=== PATIENT | female | born 1990 | race Caucasian/White ===

== ENCOUNTER 2022-10-31 01:59 | Day surgery (SDC) | payer OTHER, SELFPAY ==
[2022-10-29 10:37] VITALS: BMI 27.6
--- NOTE | 2022-10-29 10:41 | PC.NURSE ---
Report to the Outpatient Waiting Room, entrance under the green pavilion located off [facility], at time 1100 on date 10/31/22. Planned Procedure Time: 1300. Time changes happen often and if your time is changed the preop area will call you the afternoon before. - You and your visitor will be asked to self-screen and do not enter if you have any COVID symptoms. - Only one visitor is requested with a max of two and NO children visitors are allowed at this time. - The patient visitor may be requested to leave or wait in car when not with patient due to distancing restrictions. - A mask is optional within the hospital. Patients may have clear liquids (water, carbonated beverages, clear teas, apple juice) until 3 hours prior to surgery with a maximum of 20 ounces. - No food from midnight until time of surgery Take the following medications with a SIP of water the morning of surgery: LAMOTRIGINE, LEVETIRACETAM Medications to discontinue per physician: N/A Date to take last dose: N/A Please no make-up, nail portuguese, hairspray, perfume, deodorant, or body powder the day of surgery. No jewelry (including any body piercings) or valuables the day of surgery, leave them at home. Please take a shower or bath the night before, or the morning of, surgery with an antibacterial soap. Wear comfortable, loose fitting clothing. - Jewelry must be removed prior to entering the operating room. Rings and piercings that are not removed may be cut off. - The hospital will not accept responsibility for valuables. - Please leave all valuables, including medications, at home the day of surgery. If you are going home after surgery, a licensed uke driver must drive you home. - NO public transportation without another adult if you receive anesthesia. - We recommend that an adult stay with you for 24 hours following discharge. - We also recommend that you do not drive, make important decision, drink alcoholic beverages, or take any drugs that were not prescribed by your health care provider for at least 24 hours after your discharge time. Follow any additional instructions given to you from your surgeon. If you or anyone in your household have experienced Covid symptoms in the past week, please notify your surgeon or the nurse liaison at the phone number below for possible testing. Telephone instructions given to PT - IOANA TALAMANTES and asked if any additional questions and then verbalized understanding. Patient advised to call surgeon office or pre surgery nurse liaison [phone] if any additional questions.
[2022-10-31] MEDS: ONDANSETRON INJ 4 MG/2 ML VIAL IV PUSH (11:38)
[2022-10-31] MEDS: LACTATED RINGERS 1,000 ML 30 ML IV CONT (11:38)
[2022-10-31] MEDS: SCOPOLAMINE 1.5 MG PATCH TRANSDERM (11:38)
[2022-10-31 11:52] VITALS: BP 110/71; PULSE 82; RESP 18; TEMP 36.6; O2SAT 100
--- NOTE | 2022-10-31 11:54 | WPDANESEPPF ---
Anes - Initial Pre Proc Eval Procedure: Operation Date: 10/31/22 13:00 Proposed Procedures p Suction Dilatation and Curettage - Leana Castano MD Date/Time: 10/31/22 11:54 Surgeon: Leana Castano MD Pre Op Diagnosis: missed AB Patient Data Age: 31 Gender: F Height: 1.7 m Weight: 77.2 kg Last Vital Signs Temp 36.6 C 10/31/22 11:52 Pulse 82 10/31/22 11:52 Resp 18 10/31/22 11:52 BP 110/71 10/31/22 11:52 Pulse Ox 100 10/31/22 11:52 O2 Del Method Room Air 10/31/22 11:52 Allergies Allergy/AdvReac Type Severity Reaction Status Date / Time No Known Allergies Allergy Verified 10/31/22 11:42 Home Medications Medication Instructions Recorded Confirmed Type lamotrigine 25 mg tablet 75 mg PO BID 10/29/22 10/31/22 History levetiracetam 750 mg tablet 1,500 mg PO BID 10/29/22 10/31/22 History Patient hx anesthesia problems: none Family hx anesthesia problems: none Results Review: All pre-operative results and documents have been reviewed as part of the pre-operative evaluation. [facility] Social History Social History Smoking packs per day: 0.5 Smoking cigarettes per day: 10.0 Years smoked: 10 Smoking pack-years: 5.00 Smoking status: Former smoker Tobacco type: cigarettes Smoking end date: 10/13/15 Alcohol intake: never Substance use: current Substance use type: marijuana Living arrangements: other Spiritual care concerns: No Anes - Eval Final PreProcedure Day of Procedure 10/31/22 11:54 Patient weight: overweight Heart: regular rate and rhythm Lungs: decreased breath sounds Airway: Mallampati scale class II Neurological: alert and oriented Last oral intake: >/= 8 hours ASA classification: II Emergent: no Anesthetic plan: proceed Anesthesia type and monitoring: general GIVS and standard monitoring Results Review: All pre-operative results and documents have been reviewed as part of the pre-operative evaluation. Informed Consent: The patient's anesthetic plan and its attendant risks and benefits were discussed with the patient/family/POA. Questions were solicited and answers provided to the satisfaction of the patient/family/POA.
--- NOTE | 2022-10-31 12:37 | WPDHPUPDATE1 ---
History and Physical Update Update Date/Time: 10/31/22 12:37 History and Physical has been reviewed, including an updated exam of the patient. There are NO changes in the patient's condition. Risks, benefits, and alternatives have been discussed and questions answered. Patient agrees to proceed with procedure.
[2022-10-31] MEDS: LIDOCAINE HCL 1% LOCAL INJ 10 ML VIAL 30 ML INFILTRATE (13:00)
[2022-10-31 13:18] VITALS: BP 96/54; PULSE 76; RESP 14; O2SAT 99
--- NOTE | 2022-10-31 13:30 | W.PM.PROC2 ---
Procedure Note - Detailed Date of Procedure 10/31/22 Pre-op Diagnosis missed AB Post-op Diagnosis Same Procedure Performed Suction D&C Surgeon Leana Castano MD Anesthesia MAC Indications missed Findings normal-appearing vulva vagina and cervix to. Moderate amount of products conception within the uterus. 8 cm uterus Description of Procedure the patient was taken the operating room. She was prepped and draped in dorsal lithotomy position after induction of mac anesthesia. A speculum was placed in the vagina. Cervix grasped with tenaculum. The cervix was dilated to about 1 cm Using Camacho dilators. A 8. Latvian curved curette was used to perform suction D&C. The curette was introduced and vacuum was applied. The curette was removed over all surfaces of the intrauterine cavity multiple times. This was done until all the surfaces were clear and had the familiar grainy texture they can be felt through the instrument. A sharp curette was then used to curettage all the surfaces. The suction cup was then reapplied 1 more time to remove any debris. The instruments were removed. The speculum and tenaculum were removed. The patient tolerated the procedure well. She was taken recovery room stable condition. Estimated Blood Loss 50 Drains No Packing No Pathology Yes Complications No immediate complications Condition Stable Disposition PACU
[2022-10-31 13:40] VITALS: BP 98/61; PULSE 57; RESP 14; O2SAT 99
[2022-10-31 14:10] VITALS: BP 103/64; PULSE 56; RESP 16; O2SAT 99
== END 2022-10-31 14:21 | disposition home or self-care (01) ==
PROVIDERS: PCP Nurse Practitioner; Visit Provider Obstetrics & Gynecology
PROC: (CPT 59820; principal; 2022-10-31 13:00)
DX: O02.1 Missed abortion (principal); Z87.891 Personal history of nicotine dependence; Z3A.00 Weeks of gestation of pregnancy not specified
CPT/HCPCS: 59820; 36415; 85461; 86850; 86900; 86901; 88305; A9270; J2250; J2405; J2704; J3010; J7120

== ENCOUNTER 2023-09-24 10:22 | Outpatient (CLI) | payer OTHER, SELFPAY ==
[2023-09-24] VITALS (37 sets, daily range): BP systolic 90–105; BP diastolic 48–70; PULSE 38–97; O2SAT 78–98; BMI 28.3
[2023-09-24 11:02] LABS: Basophils Percent Auto 0.2 % (0.2-1.2); Eosinophils Absolute Auto 0.1 K/mm3 (0-0.3); Eosinophils Percent Auto 0.6 % (0-4.4); Hematocrit 30.6 % (37.0-47.0); Hemoglobin 9.9 g/dL (12.0-15.0); Immature Granulocyte Absolute 0.08 K/mm3 (0.00-0.031); Immature Granulocyte Percent A 0.6 % (0-0.5); Lymphocytes Absolute Auto 0.97 K/mm3 (0.9-3.2); Lymphocytes Percent Auto 7.6 % (18.3-44.2); Mean Corpuscular HGB Conc 32.4 g/dl (32-36); Mean Corpuscular Hemoglobin 25.3 pg (26-34); Mean Corpuscular Volume 78.1 fl (80-100); Mean Platelet Volume 10.5 fl (7.4-10.4); Monocytes Absolute Auto 0.6 K/mm3 (0.1-0.6); Monocytes Percent Auto 4.7 % (2.6-8.5); Neutrophils Percent Auto 86.3 % (45.5-73.1); Platelet Count Result 152 k/mm3 (150-375); Red Blood Count 3.92 M/mm3 (4.2-5.4); Red Cell Distribution Width 13.7 % (11.5-14.5); White Blood Count 12.7 K/mm3 (4.5-10.0)
[2023-09-24] MEDS: ACETAMINOPHEN 500 MG TABLET 1000 MG PO (11:11)
[2023-09-24 11:14] LABS: Alanine Aminotransferase 10 U/L (6-35); Albumin Level 3.5 g/dL (3.5-5.1); Alkaline Phosphatase 161 U/L (38-126); Anion Gap 7 mmol/L (8-16); Aspartate Amino Transferase 17 U/L (14-36); Bilirubin,Total 0.8 mg/dL (0.2-1.3); Blood Urea Nitrogen 8 mg/dL (7-17); Calcium 8.3 mg/dL (8.4-10.2); Carbon Dioxide 19 mmol/L (22-30); Chloride 107 mmol/L (98-107); Estimated CRCL calculation 150 ml/min; Estimated Glomerular Filt Rate > 60; Glucose 93 mg/dL (65-110); Potassium 3.5 mmol/L (3.4-5.0); Sodium 133 mmol/L (137-145); Uric Acid 3.8 mg/dL (2.5-7.5)
[2023-09-24 11:40] LABS: Creatinine Urine 141.9 mg/dL; Total Protein Urine Random 15 mg/dL; Ur Ttl Prot Creatinine Ratio 0.11 mg/mg (0-0.20)
[2023-09-24 11:41] LABS: Appearance Urine Clear (Clear); Bacteria Urine 1+ /hpf; Bilirubin Urine Negative (Negative); Blood Urine Negative (Negative); Calcium Oxalate Crystals Urine Present /hpf; Color Urine Yellow (Yellow); Glucose Urine UA Negative (Negative); Ketones Urine 3+ mg/dL (Negative); Leukocyte Esterase Ur 1+ LEU/UL (NEGATIVE); Need Manual Microscopic Reviewed; Nitrate Urine Negative (Negative); Non Pathogenic Casts 0-2; Protein Urine Trace mg/dL (Negative); RBC Urine 0-2 /hpf (0-2); Specific Grav Ur 1.021 (1.001-1.035); Squamous Epithelial Cell Urine Few /hpf (Few); WBC Urine 0-5 /hpf (0-3)
[2023-09-24 11:46] LABS: Add Urine Microscopic? YES
[2023-09-24] MEDS: CYCLOBENZAPRINE HCL 5 MG TABLET PO (12:59)
--- NOTE | 2023-09-24 14:00 | PC.NURSE ---
Shelbi MCCRACKENM on unit. Discussed plan of care with CNM. Patient states her back pain has diminished after receiving Flexeril. CNM to talk with MFM for orders. Patient to remain on observation unit until further orders are received.
--- NOTE | 2023-09-24 15:28 | PC.NURSE ---
Patient states she did not take her AM dose of Keppra yesterday before her seizure. She did take her PM dose. CNM notified. Verbal orders given for discharge.
--- NOTE | 2023-09-24 15:36 | PC.NURSE ---
FHT and UC evaluation charted in [facility].
== END 2023-09-24 15:40 | disposition home or self-care (01) ==
LOC: ANHOBOP 10:25 → ANHOBPP 10:26
PROVIDERS: Advanced Practice Midwife; PCP Nurse Practitioner; Visit Provider Obstetrics & Gynecology
DX: O26.899 Other specified pregnancy related conditions, unspecified trimester (principal); M54.9 Dorsalgia, unspecified
CPT/HCPCS: 36415; 59025; 80053; 81001; 82570; 84156; 84550; 85025; 87077; 87086; 87088; 99199; A9270

== ENCOUNTER 2023-09-25 17:38 | Inpatient (IN) | payer OTHER, SELFPAY ==
[2023-09-25] VITALS (120 sets, daily range): BP systolic 77–151; BP diastolic 32–130; PULSE 60–204; RESP 18; TEMP 36.5–36.6; O2SAT 94–100; BMI 29.7
--- NOTE | 2023-09-25 18:10 | LDADM ---
This patient, Fermin Pillai, was admitted to Labor/Delivery/Recovery 104 on 09/25/23 at 17:38. Plans for labor, pain management and were discussed with patient. Patient/family oriented to hospital policies and general routines including ID bracelet, bed and alarms, visiting hours, pain management, procedures, bathroom and other care routines, personal items, smoking policy, room service/diet and guest tray routines, security routines, and visiting hours. Patient/Family are encouraged to report perceived risks to care and to ask questions if they do not understand what they are told or what they should do. See [facility] for further documentation.
[2023-09-25 18:20] LABS: Basophils Percent Auto 0.1 % (0.2-1.2); Eosinophils Percent Auto 0.1 % (0-4.4); Hematocrit 31.4 % (37.0-47.0); Hemoglobin 10.2 g/dL (12.0-15.0); Immature Granulocyte Absolute 0.09 K/mm3 (0.00-0.031); Immature Granulocyte Percent A 0.6 % (0-0.5); Lymphocytes Absolute Auto 0.93 K/mm3 (0.9-3.2); Lymphocytes Percent Auto 6.7 % (18.3-44.2); Mean Corpuscular HGB Conc 32.5 g/dl (32-36); Mean Corpuscular Hemoglobin 24.9 pg (26-34); Mean Corpuscular Volume 76.6 fl (80-100); Mean Platelet Volume 10.4 fl (7.4-10.4); Monocytes Absolute Auto 0.5 K/mm3 (0.1-0.6); Monocytes Percent Auto 3.5 % (2.6-8.5); Neutrophils Absolute Auto 12.4 K/mm3 (1.3-6.7); Platelet Count Result 192 k/mm3 (150-375); Red Cell Distribution Width 13.8 % (11.5-14.5)
--- NOTE | 2023-09-25 18:21 | WPDOBADMIT ---
Obstetrics - Admit Note Admission Note: record reviewed. No pertinent additions to the history and/or any subsequent changes in the physical findings that are not consistent with the expected course of the were found. SROM 0600, clear fluid, arrived to LD 4-5 cm in active labor, anticipate vaginal delivery. hx seizure disorder. Additions to the history and/or subsequent changes in the physical findings follow. None.
--- NOTE | 2023-09-25 18:22 | PC.NURSE ---
1753--ROM plus positive, pt. reports that she has been leaking since this morning around 0600. Pt. reports ctxns started getting strong and regular around 1530 this afternoon. Cervical exam is 4-/-1. Phone call to Shelbi Lynn CNM to update on pt's condition.
[2023-09-25 18:35] LABS: Glucose Point of Care 132 mg/dl (65-105)
--- NOTE | 2023-09-25 18:37 | WPDANESEPP ---
Anes - Eval Pre Procedure Procedure: labor epidural Date/Time: 09/25/23 18:37 Pre Op Diagnosis: labor Patient Data Age: 32 Gender: F Height: 1.7 m Weight: 86 kg Last Vital Signs Pulse 101 H 09/25/23 18:17 BP 109/70 09/25/23 18:17 Pulse Ox 100 09/25/23 18:32 Allergies Allergy/AdvReac Type Severity Reaction Status Date / Time No Known Allergies Allergy Verified 09/15/23 12:24 Home Medications Medication Instructions Recorded Confirmed Type folic acid 400 mcg tablet 0.4 mg PO DAILY 09/15/23 09/15/23 History insulin NPH isoph U-100 human 100 13 unit subcut HS 09/15/23 09/15/23 History unit/mL subcutaneous cartridge levetiracetam 1,000 mg tablet 2,500 mg PO BID 09/15/23 09/15/23 History (Keppra) Laboratory Tests 09/25/23 09/25/23 18:15 18:32 WBC Pending RBC Pending Hgb Pending Hct Pending MCV Pending MCH Pending MCHC Pending RDW Pending Plt Count Pending MPV Pending Immature Gran % (Auto) Pending Neut % (Auto) Pending Lymph % (Auto) Pending [place] % (Auto) Pending Eos % (Auto) Pending Baso % (Auto) Pending Lymph # (Auto) Pending [place] # (Auto) Pending Eos # (Auto) Pending Baso # (Auto) Pending Abs Immat Gran (auto) Pending Absolute Neuts (auto) Pending Absolute Nucleated RBC Pending Nucleated RBC % Pending POC Capillary Glucose 132 H mg/dl (65-105) RPR Pending Blood Type Pending Antibody Screen Pending Patient hx anesthesia problems: none Family hx anesthesia problems: none Results Review: All pre-operative results and documents have been reviewed as part of the pre-operative evaluation. [facility] Past Medical History Medical History (Updated 09/25/23 @ 18:37 by Haylee Narayanan CRNA) Seizure Family History Family History Father Throat cancer Social History Social History Smoking status: Former smoker Tobacco type: cigarettes Smoking end date: 09/29/15 Substance use: current Lack of Transportation: No Lack of Food: Never True Current Housing: I Have Housing Concerned About Future Housing: No Difficulty Paying Gas/Electric Bills: No Difficulty Paying for Meds: No Currently Unemployed: No Education: Associate Degree Difficulty w/ Childcare or Family Care: No Spiritual care concerns: No Exam Day of Procedure 09/25/23 18:37 Patient weight: obese Heart: regular rate and rhythm Lungs: normal air movement Airway: Mallampati scale Neurological: alert and oriented
[2023-09-25] MEDS: OXYTOCIN 30 UNITS/NS 500 ML 30 UNITS/500 ML BAG IV CONT (20:00)
[2023-09-25] MEDS: LACTATED RINGERS 1,000 ML 125 ML IV CONT ×2 (20:05→20:10)
[2023-09-25] MEDS: OXYTOCIN 30 UNITS/NS 500 ML 30 UNITS/500 ML BAG 999 UNITS IV CONT (20:37)
--- NOTE | 2023-09-25 20:43 | P.PCNOB_ITS ---
OB - Vaginal Delivery Note Procedure Delivery date: 09/25/23 Events: Gestational Diabetes and Other (Maternal Seizures) Induction method: None Delivery augmentation: Pitocin Delivery monitor: External FHT and External Uterine Route of delivery: Episiotomy description: None Laceration Description: None Specimen: Yes Quantitative Blood Loss (ml): 75 Anesthesia type: Epidural Disposition: Floor Complications: None Baby Time of : 20:36 Weeks of gestation at delivery: 37 gender: Male Weight (pounds): 6 Weight (ounces): 8 presentation: vertex position: Right Occiput Anterior Placenta delivery description: Spontaneous Cord Vessel Description: 2 Vessels, Nuchal Cord and Reduced score one minute: 8 score five minutes: 8 Narrative: baby to warmer for bottom turning lathe tender evaluation
[2023-09-25] MEDS: OXYTOCIN 30 UNITS/NS 500 ML 30 UNITS/500 ML BAG 125 UNITS IV CONT (21:08)
--- NOTE | 2023-09-25 23:04 | PC.NURSE ---
Patient transferred to post room #288 per wheelchair from labor and delivery. Support person present. Oriented to unit, room, information board, rooming in, admission packet and security measures. Patient verbalizes understanding.
--- NOTE | 2023-09-25 23:12 | PC.NURSE ---
DENAE HANDED TO JEREMIAH BIRD RN AT THIS TIME WHEN THE PATIENT WAS TRANSPORTED UP TO .
[2023-09-26 04:30] VITALS: BP 100/63; PULSE 78; RESP 18
[2023-09-26 04:37] LABS: Hematocrit 28.3 % (37.0-47.0)
--- NOTE | 2023-09-26 07:44 | P.PNOB_ITS ---
OB - PN: Subj Subjective Date/time seen: 09/26/23 07:44 Interval history: PPD 1 Doing well No seizures overnight Baby getting accuchecks with meals OB - PN: Obj Data Labs 09/26/23 04:31 Labs: Laboratory Results - last 24 hr 09/25/23 09/25/23 09/26/23 18:15 18:32 04:31 WBC 14.0 H RBC 4.10 L Hgb 10.2 L 9.0 L Hct 31.4 L 28.3 L MCV 76.6 L MCH 24.9 L MCHC 32.5 RDW 13.8 Plt Count 192 MPV 10.4 Immature Gran % (Auto) 0.6 H Neut % (Auto) 89.0 H Lymph % (Auto) 6.7 L [place] % (Auto) 3.5 Eos % (Auto) 0.1 Baso % (Auto) 0.1 L Lymph # (Auto) 0.93 [place] # (Auto) 0.5 Eos # (Auto) 0.0 Baso # (Auto) 0.0 Abs Immat Gran (auto) 0.09 H Absolute Neuts (auto) 12.4 H Absolute Nucleated RBC 0.0 Nucleated RBC % 0.0 POC Capillary Glucose 132 H Blood Type AB Positive Antibody Screen Negative OB - PN A/P Plan day: 1 Plan: routine care Time Spent With Patient Time: Total time spent is greater than 50% in coordination of care (as documented) at patient's floor/unit and/or counseling patient: Review of Systems Review of Systems: All systems reviewed & are unremarkable except as noted in HPI and below Exam Const: General: cooperative, healthy appearing and comfortable Resp: Effort & Inspection: normal respiratory effort Cardio: Rate: regular rate GI: Other: soft Neuro: General: patient oriented x3 Extrem: Right lower extremity: normal to inspection Left lower extremity: normal to inspection Psych: Appearance: grossly normal
[2023-09-26 07:55] VITALS: BP 113/77; PULSE 81; RESP 16; TEMP 36.3; O2SAT 100
[2023-09-26 08:00] VITALS: PULSE 81; RESP 16; O2SAT 100
--- NOTE | 2023-09-26 08:34 | WPDANLDPN2 ---
Anes-Prog Note L&D Date/Time: 09/26/23 08:34 Comfortable throughout: labor and delivery Neuraxial method: epidural Epidural/Spinal procedure site: clean & non-tender Neuro status: Neuro function grossly intact. Cardiovascular status: normal Respiratory status: normal Airway patency: baseline Mental status: baseline Post-Op hydration status: normal Vital Signs: Last Vital Signs Temp 97.4 F L 09/26/23 07:55 Pulse 81 09/26/23 07:55 Resp 16 09/26/23 07:55 BP 113/77 09/26/23 07:55 Pulse Ox 100 09/26/23 07:55 O2 Del Method Room Air 09/25/23 23:15 Pain score (VAS): 0/10 I/O: Intake & Output 09/25/23 09/26/23 09/26/23 23:59 07:59 15:59 Intake Total 1000 500 Output Total 100 Balance 900 500 Post-procedural complaints: none Patient feedback: Patient satisfied with anesthetic care.
[2023-09-26] MEDS: POLYSACCHARIDE IRON COMPLEX 150 MG CAPSULE PO ×2 (08:56→17:05)
[2023-09-26] MEDS: DOCUSATE SODIUM 100 MG CAPSULE PO ×2 (08:57→17:06)
[2023-09-26 12:33] VITALS: BP 91/52; PULSE 92; RESP 16; TEMP 36.9; O2SAT 95
[2023-09-26] MEDS: IBUPROFEN 600 MG TABLET PO (14:00)
[2023-09-26 14:49] LABS: Rapid Plasma Reagin Non-Reactive (NonReactive)
[2023-09-26 20:45] VITALS: BP 98/61; PULSE 84; RESP 16; TEMP 36.7
[2023-09-27] MEDS: IBUPROFEN 600 MG TABLET PO ×2 (02:30→08:25)
--- NOTE | 2023-09-27 05:00 | PC.NURSE ---
Patient instructed to view the discharge video Mother & Baby Care, The First Two Weeks online. Patient was given the opportunity and encouraged to ask questions. Patient verbalized understanding of information shared and has been given the mother/baby guide for home reference.
[2023-09-27 08:15] VITALS: BP 105/72; PULSE 94; RESP 20; TEMP 36.6; O2SAT 97
[2023-09-27] MEDS: POLYSACCHARIDE IRON COMPLEX 150 MG CAPSULE PO (08:24)
[2023-09-27] MEDS: MULTIVIT/MIN/PREN/FOL AC/IRON TABLET 1 TAB PO (08:24)
[2023-09-27] MEDS: DOCUSATE SODIUM 100 MG CAPSULE PO (08:25)
--- NOTE | 2023-09-27 08:29 | PM.OBPNVD ---
OB - PN: Subj Subjective Date/time seen: 09/27/23 08:29 Interval history: PPD 2 Doing well No seizures overnight Bleeding minimal ready for discharge today OB - PN: Obj Data Labs 09/26/23 04:31 Labs: Laboratory Results - last 24 hr 09/25/23 18:15 RPR Non-reactive OB - PN A/P Assessment and Plan (1) Seizure disorder: Code(s): G40.909 - Epilepsy, unspecified, not intractable, without status epilepticus Status: Acute Assessment and Plan: continue keppra Plan day: 2 Plan: discharge home and other (follow up in 4 weeks) Time Spent With Patient Time: Total time spent is greater than 50% in coordination of care (as documented) at patient's floor/unit and/or counseling patient: Review of Systems Review of Systems: All systems reviewed & are unremarkable except as noted in HPI and below Exam Const: General: cooperative, healthy appearing and comfortable Resp: Effort & Inspection: normal respiratory effort Cardio: Rate: regular rate GI: Other: soft Neuro: General: patient oriented x3 Extrem: Right lower extremity: normal to inspection Left lower extremity: normal to inspection Psych: Appearance: grossly normal
--- NOTE | 2023-09-27 08:32 | PM.OBDSVD ---
DS: Admitting Diagnosis Discharge Date 09/27/23 Admitting Diagnosis labor DS: Discharge Diagnosis Discharge Diagnosis (1) (spontaneous vaginal delivery): Code(s): O80 - Encounter for full-term uncomplicated delivery Status: Acute (2) Seizure disorder: Code(s): G40.909 - Epilepsy, unspecified, not intractable, without status epilepticus Status: Acute OB - DS: Summary OB Procedures : None OB Procedures Intrapartum: Spontaneous Vag Delivery OB Procedures: : None Peripartum Data Laceration Description: None Episiotomy description: None Time Spent with Patient Time attestation: Total time spent providing and/or coordinating discharge services: DS: Data Data Completed and Pending Pending studies at discharge: Pending at discharge 09/25/23 21:58 Surgical [PTH] Routine Labs on day of discharge: Labs from last 24 hours 09/25/23 18:15 RPR Non-reactive Discharge Plan Discharge Attending physician on discharge: Osmar Lauren Discharging Clinician: Osmar Lauren Patient Disposition: Home, Self-Care Activity: may shower and pelvic rest Diet: as tolerated Patient Instructions: Antibiotic Form Stand Alone Forms: General Discharge Information Follow-up/Referrals: Leana Castano MD [Physician] - 4 Weeks Discharge Medications: Continued lamotrigine 25 mg tablet 75 mg PO BID levetiracetam [Keppra] 1,000 mg Tablet 2,500 mg PO BID Discontinued levetiracetam 750 mg tablet 1,500 mg PO BID folic acid 400 mcg Tablet 0.4 mg PO DAILY Humulin N NPH U-100 Insulin 100 unit/mL Cartridge 13 unit SUBCUT HS Date of admission: 09/25/23 17:38 Primary Care Provider: PHYSICIAN,MIXING MACHINE OPERATOR Admitting Provider: Leana Castano Attending physician on admission: Leana Castano Condition: Stable
[2023-09-29 08:55] VITALS: BP 112/76; PULSE 89; RESP 16; TEMP 36.6; O2SAT 99
== END 2023-09-27 13:15 | disposition home or self-care (01) | DRG 560 ==
LOC: ANHLDR 18:37 → ANHOB2 09-27 03:59 → ANHLDR 09-29 11:30 → ANHOB2 09-29 11:30
PROVIDERS: Advanced Practice Midwife; Admitting Provider Obstetrics & Gynecology; Visit Provider Obstetrics & Gynecology
DX: O24.429 Gestational diabetes mellitus in childbirth, unspecified control (principal); O99.354 Diseases of the nervous system complicating childbirth; G40.909 Epilepsy, unspecified, not intractable, without status epilepticus; O69.1XX0 Labor and delivery complicated by cord around neck, with compression, not applicable or unspecified; Z3A.37 37 weeks gestation of pregnancy; Z37.0 Single live birth
CPT/HCPCS: 36415; 82948; 85014; 85018; 85025; 86592; 86850; 86900; 86901; 88307; A9270; J2590; J2795; J7120